=== PATIENT | female | born 1980 | race Caucasian/White ===

== ENCOUNTER 2021-02-23 07:43 | Outpatient (REF) | payer OTHER, SELFPAY ==
[2021-02-23 08:04] LABS: COVID-19 Test Negative (Negative); IDNOW Serial# 55D5AD1C
== END 2021-02-23 07:44 | disposition home or self-care (01) ==
LOC: HO.EMPCOV 07:43
PROVIDERS: Visit Provider Internal Medicine
DX: Z20.822 Contact with and (suspected) exposure to COVID-19 (principal)
CPT/HCPCS: 36415; 87635; C9803

== ENCOUNTER → 2021-06-23 08:40 | Outpatient (BNVA) | payer MEDICAID, SELFPAY | PROVIDERS: PCP Nurse Practitioner Community Health | DX: Z20.822 Contact with and (suspected) exposure to COVID-19 (principal) | CPT/HCPCS: 36415; 87635 ==

== ENCOUNTER 2021-09-04 20:26 | Emergency (ER) | payer MEDICAID, SELFPAY ==
--- NOTE | ~2021-09-04 | XR_ITS ---
EXAMINATION: XR FOOT, RIGHT CLINICAL INFORMATION: Bruising to the fourth and fifth toe. Stepped on by horse. COMPARISON: None TECHNIQUE: AP, lateral, and oblique views of the right foot. FINDINGS: Minimal enthesopathy at the insertional site of the Achilles tendon to the calcaneus and accessory ossicle overlying the cuboid. No fracture. Alignment is anatomic. Joint spaces are maintained. XR/XR foot RT 2V IMPRESSION: No radiographic evidence of any displaced fracture, subluxation or dislocation is seen at the fourth and fifth right toes.
[2021-09-04 20:29] VITALS: BP 121/68; PULSE 69; RESP 18; TEMP 36.2; O2SAT 100; BMI 23.0
--- NOTE | 2021-09-04 21:27 | ED.LOWEXIN ---
HPI - Extremity Injury (Lower) General Chief Complaint: Extremity Injury, Lower Stated Complaint: rt foot ? broken toes Time Seen by Provider: 09/04/21 21:26 Source: patient Mode of arrival: ambulatory Limitations: no limitations History of Present Illness HPI Narrative: c/o rt foot pain,states that her horse stepped in the rt foot complaint: foot injury Onset (ago): hour(s) (6) Type of Injury: blunt Place: other (yard) Severity: moderate Relieving factors: nothing Exacerbating factors: nothing Context: direct blow Related Data Previous Rx's Medication Instructions Recorded oxycodone 5 mg tablet 5 mg PO BID PRN #8 tab 09/04/21 Allergies Allergy/AdvReac Type Severity Reaction Status Date / Time penicillin G [PENICILLIN G] Allergy Unknown RASH Verified 09/04/21 20:33 Review of Systems Review of Systems: Yes all other systems are reviewed and are negative Constitutional: Constitutional: Reports no additional constitutional complaints ENT: Reports system reviewed and no additional complaints, except as documented Respiratory: Respiratory: Reports no additional respiratory complaints Gastrointestinal: Gastrointestinal: Reports no additional gastrointestinal complaints Integumentary/Breasts: Skin/Breast: Reports system reviewed and no additional complaints, except as docu Neurologic: Reports system reviewed and no additional complaints, except as documented PMFSH Past Medical History Medical History No known health problems Social History Social History Advance Directives: No Advance Directives Information Provided: No Patient : No Physical Exam Vital Signs: Vital Signs: Last Vital Signs Temp 97.2 F 09/04/21 20:29 Pulse 69 09/04/21 20:29 Resp 18 09/04/21 20:29 BP 121/68 09/04/21 20:29 Pulse Ox 100 09/04/21 20:29 Body Mass Index 23.0 Const: General: cooperative, healthy appearing, comfortable, no acute distress, well developed, alert and awake Nutritional Appearance: average body habitus Orientation/consciousness: oriented to person, oriented to place, oriented to time and patient oriented x3 HENMT: Head: Yes normal to inspection Face and sinus: Yes normal facial exam Mouth: Normal oral and palatal mucosa present Neck: Neck: Yes normal visual inspection and Yes full ROM Chest: Chest palpation & inspection: normal inspection of the chest Resp: Effort & Inspection: normal respiratory effort Auscultation: clear to auscultation bilaterally Cardio: Jugular venous distension: no JVD Rate: regular rate Rhythm: regular rhythm GI: Inspection: Yes normal to inspection Palpation (GI): Soft to palpation, not firm, nontender and no guarding Skin: General skin exam: no rashes or lesions noted Neuro: General: oriented to person, oriented to place, oriented to time and patient oriented x3 Extrem: Other: tenderness over toe 4th and 5th rt MDM - Extremity Injury (Lower) Imaging Data foot rt: Radiologist's impression: EXAMINATION: XR CHEST CLINICAL INFORMATION: Shortness of breath. COMPARISON: Chest radiograph done on 07/15/2020. TECHNIQUE: Frontal view of the chest was obtained. FINDINGS: No significant abnormality is noted involving the heart, lungs, mediastinum, bony thorax or soft tissues. XR/XR chest 1V IMPRESSION: Unremarkable examination. No significant change since 09/04/2021. ? Dictated By: MO CEVALLOS MD Signed By: <Electronically signed by MO CEVALLOS MD in OV> 09/04/21 4593 Discharge Plan Discharge Clinical Impression: Contusion of foot Patient Disposition: Home, Self-Care Instructions: Foot Contusion (ED) Prescriptions: New oxycodone 5 mg tablet 5 mg PO BID PRN (Reason: pain) Qty: 8 RF: 0 Stand Alone Forms: Work/School Release Interventions: ED Discharge Assessment Last Done: 09/04/21 22:26 Discharge Date/Time: 09/04/21 22:27
== END 2021-09-04 22:27 | disposition home or self-care (01) ==
PROVIDERS: Emergency Provider Emergency Medicine
DX: S90.31XA Contusion of right foot, initial encounter (principal); W55.19XA Other contact with horse, initial encounter; Y93.89 Activity, other specified; Y92.017 Garden or yard in single-family (private) house as the place of occurrence of the external cause; Y99.9 Unspecified external cause status
CPT/HCPCS: 73620; 99283

== ENCOUNTER 2023-10-10 17:16 | Emergency (ER) | payer BC, SELFPAY ==
--- NOTE | ~2023-10-10 | XR_ITS ---
EXAMINATION: XR CHEST CLINICAL INFORMATION: Shortness of breath. COMPARISON: None available. TECHNIQUE: 2 views of the chest were obtained. FINDINGS: No significant abnormality is noted involving the heart, lungs, mediastinum, bony thorax or soft tissues. XR/XR chest 2V IMPRESSION: Unremarkable examination.
--- NOTE | 2023-10-10 17:23 | ED_ITS ---
HPI - General Adult General Chief complaint: Upper Respiratory Symptoms Stated complaint: Persistant sore throat Time Seen by Provider: 10/10/23 18:35 Source: patient, RN notes reviewed and old records reviewed Mode of arrival: ambulatory Limitations: no limitations History of Present Illness HPI narrative: 42-year-old female presents for evaluation of sore throat Patient reports sore throat for the last 2 weeks. She also reports congestion, cough productive yellow sputum, and bilateral ear pain Patient saw Urgent Care had viral swabs in strep test that were negative. She followed up with her PCP and had repeat viral swabs and was told to just take symptomatic She did not have any mono testing She is concerned because her symptoms have not improved and has now been 2 weeks Related Data Previous Rx's Medication Instructions Recorded oxycodone 5 mg tablet 5 mg PO BID PRN pain #8 tabs 09/04/21 azithromycin 250 mg tablet See Rx Instructions PO .COMPLEX #6 10/10/23 tabs prednisone 20 mg tablet 40 mg (2 x 20 mg) PO DAILY #10 tabs 10/10/23 Allergies Allergy/AdvReac Type Severity Reaction Status Date / Time penicillin G [PENICILLIN G] Allergy Unknown RASH Verified 10/10/23 17:25 Review of Systems Constitutional: Constitutional: Denies chills, Denies fever(s) and Reports headache(s) Eyes: Eyes: Denies blurry vision ENT: Reports headache(s) and Reports sore throat Cardiovascular: Cardiovascular: Reports dyspnea Respiratory: Respiratory: Reports cough, Reports excessive phlegm production and Reports dyspnea Gastrointestinal: Gastrointestinal: Denies abdominal pain, Denies nausea and Denies vomiting Musculoskeletal: Musculoskeletal: Denies back pain Integumentary/Breasts: Skin/Breast: Denies rash Neurologic: Reports headache(s) Psychiatric: Psychiatric: Denies anxiety [facility] Past Medical History Medical History No known health problems Social History Social History Advance Directives: No Advance Directives Information Provided: No Physical Exam ED Vital Signs: Vital Signs - 24 hr 10/10/23 17:25 Temperature 97.9 F Pulse Rate 75 Respiratory Rate 20 Blood Pressure 142/57 H Pulse Oximetry 97 Oxygen Delivery Method Room Air BMI result Body Mass Index 30.1 Const General: healthy appearing, comfortable, no acute distress, alert and awake Nutritional Appearance: well nourished Orientation/consciousness: patient oriented x3 HENMT Head: Yes normocephalic and Yes atraumatic Throat: Yes posterior oropharynx normal Eyes Eyelids: Yes eyelids normal Conjunctivae: conjunctivae normal Sclerae: sclerae normal Corneas: corneas normal Pupils: Equal, round and reactive pupils present EOM: EOMs intact bilaterally Neck Neck: Yes full ROM Resp Effort & Inspection: normal respiratory effort, able to speak in complete sentences and not labored GI Inspection: No distended Palpation (GI): Soft to palpation, not firm, nontender, no guarding and not rigid Skin General skin exam: elasticity normal Neuro General: patient oriented x3 Cranial nerves: Yes Equal, round and reactive pupils present and Yes Bilaterally intact EOM present Cognition (Neuro): normal cognition Extrem Other: Moving all extremities well without any obvious deformities Course Course Course Narrative: This is an RME: Additional HPI, ROS, PE not included below will be deferred to primary provider. 42 yo f presents w/ b/l ear pain, cough, fatigue, malaise, sinus congestion & pressure, diarrhea, myalgias, sore throat since 09/26/23. Child at home w. ear infection. Reports decreased PO intake Plan- viral test Reevaluation(s) Reevaluation #1: Patient's chest x-ray is clear, mononucleosis test was negative. Will treat with azithromycin and prednisone given the duration of her symptoms over 2 weeks Time: 19:42 Medications Administered Discontinued Medications Generic Name Dose Route Start Last Admin Trade Name Freq PRN Reason Stop Dose Admin Lidocaine HCl 15 ml 10/10/23 17:26 10/10/23 17:49 Lidocaine Hcl Viscous 2 % 15 Ml Solution MUCOUS MEM 10/10/23 17:27 15 ml ONCE ONE Administration Medical Decision Making Medical Decision Making [facility] Narrative: 42-year-old female presents for evaluation of what sounds like upper respiratory infection symptoms/leg symptoms for the last 2 weeks. She has had multiple negative viral swab. Plan for chest x-ray and mononucleosis testing Differential Diagnosis Differential Diagnoses: The differential diagnosis associated with the presentation includes Bronchitis Pneumonia Mononucleosis Strep pharyngitis Sinusitis Lab Data Labs: Lab Results 10/10/23 10/10/23 Range/Units 17:40 18:59 Monoscreen Negative (Negative) Influenza Type A (PCR) NEGATIVE (Negative) Influenza Type B (PCR) NEGATIVE (Negative) RSV RNA Qual (PCR) NEGATIVE (Negative) SARS-CoV-2 RNA (RT-PCR) NEGATIVE (Negative) S. pyogenes GrpA JANNA Negative (Negative) Independent Interpretation I performed an independent interpretation of an: Plain X-Ray (No infiltrates) Discharge Plan Discharge Clinical Impression: Upper respiratory infection Patient Disposition: Home, Self-Care Instructions: Upper Respiratory Infection (ED) Additional Instructions: Your chest x-ray was clear today. You tested negative for flu, COVID, RSV, mononucleosis, strep Take azithromycin as directed. Take prednisone as well Follow-up with your primary doctor Prescriptions: New azithromycin 250 mg tablet See Rx Instructions .ROUTE .COMPLEX Qty: 6 0RF Rx Instructions: For 250 mg dose pack: take 500 mg today (day 1), then 250 mg for 4 days (days 2-5) prednisone 20 mg tablet 40 mg PO DAILY Qty: 10 0RF No Action oxycodone 5 mg tablet 5 mg PO BID PRN (Reason: pain) Qty: 8 0RF Rx Instructions: may partially fill upon request
[2023-10-10 17:25] VITALS: BP 142/57; PULSE 75; RESP 20; TEMP 36.6; O2SAT 97; BMI 30.1
[2023-10-10] MEDS: Lidocaine HCl Viscous 2 % 15 ML SOLUTION MUCOUS MEM (17:49)
[2023-10-10 18:03] LABS: IDNOW Serial# 08D9AD1C; Strep A Nucleic Acid Negative (Negative)
[2023-10-10 18:29] LABS: Influenza A PCR NEGATIVE (Negative); Influenza B PCR NEGATIVE (Negative); Resp Syncy Virus RNA Qual PCR NEGATIVE (Negative); SARS COV2 PCR INHOUSE NEGATIVE (Negative)
[2023-10-10 19:14] LABS: Monotest Negative (Negative)
[2023-10-10 19:55] VITALS: RESP 16
== END 2023-10-10 19:56 | disposition home or self-care (01) ==
PROVIDERS: Physician Assistant; Emergency Provider Emergency Medicine
DX: J06.9 Acute upper respiratory infection, unspecified (principal); Z20.822 Contact with and (suspected) exposure to COVID-19; Z20.828 Contact with and (suspected) exposure to other viral communicable diseases
CPT/HCPCS: 0241U; 36415; 71046; 86308; 87651; 99282; 99283